=== PATIENT | female | born 1995 ===

== ENCOUNTER 2021-12-17 14:22 | Outpatient (CLI) | payer OTHER | END 2021-12-17 16:20 | disposition home or self-care (01) | LOC: PRENATAL 14:22 | PROVIDERS: ATTEND Obstetrics & Gynecology Maternal & Fetal Medicine | DX: O35.0XX0 Maternal care for (suspected) central nervous system malformation in fetus, not applicable or unspecified (principal); O35.3XX0 Maternal care for (suspected) damage to fetus from viral disease in mother, not applicable or unspecified; Z3A.19 19 weeks gestation of pregnancy ==

== ENCOUNTER 2022-03-18 09:13 | Outpatient (CLI) | payer OTHER | END 2022-03-18 10:09 | disposition home or self-care (01) | LOC: PRENATAL 09:13 | PROVIDERS: ATTEND Obstetrics & Gynecology Maternal & Fetal Medicine | DX: O35.0XX0 Maternal care for (suspected) central nervous system malformation in fetus, not applicable or unspecified (principal); O35.3XX0 Maternal care for (suspected) damage to fetus from viral disease in mother, not applicable or unspecified; Z3A.20 20 weeks gestation of pregnancy ==